=== PATIENT | female | born 1990 | race Caucasian/White ===

== ENCOUNTER 2024-09-17 16:57 | Emergency (ER) | payer OTHER, SELFPAY ==
[2024-09-17 17:20] VITALS: BP 143/89
[2024-09-17 17:56] LABS: % Basophils 0.6 % (0-2); % Eosinophils 1.6 % (0-6); % Immature Granulocytes 0.5 % (0-0.5); % Lymphocytes 25.7 % (20.5-51.1); % Monocytes 5.9 % (1.7-9.3); % Neutrophils 65.7 % (42.2-75.2); Absolute Basophils 0.1 10^3/uL (0-0.2); Absolute Eosinophils 0.1 10^3/uL (0-0.7); Absolute Lymphocytes 2.1 10^3/uL (1.2-3.4); Absolute Monocytes 0.5 10^3/uL (0.1-0.6); Absolute Neutrophils 5.5 10^3/uL (1.4-6.5); Hematocrit 38.8 % (37.0-47.0); Hemoglobin 12.9 g/dL (12.0-16.0); Mean Corp Hgb Conc. 33.2 g/dL (33.0-37.0); Mean Corpuscular Hgb 29.9 pg (27.0-31.0); Mean Corpuscular Volume 89.8 fL (81.0-99.0); Mean Platelet Volume 9.8 fL (7.4-10.4); Nucleated Red Blood Cells % 0 %; Platelet Count 295 10^3/uL (130-400); Red Blood Cell Count 4.32 10^6/uL (4.20-5.40); Red Cell Dist. Width 12.4 % (11.5-14.5); White Blood Cell Count 8.3 10^3/uL (4.8-10.8)
[2024-09-17 18:10] LABS: HCG, Serum Qualitative Screen Negative; INR 0.97; PT 13.2 Sec (11.4-14.6)
[2024-09-17 18:13] LABS: ALT (SGPT) 33 U/L (0-35); AST (SGOT) 30 U/L (14-36); Albumin 4.3 g/dl (3.5-5.0); Alkaline Phosphatase 77 U/L (38-126); Blood Urea Nitrogen 15 mg/dl (7-17); Calcium 9.9 mg/dl (8.4-10.2); Carbon Dioxide 28 mmol/L (22-30); Chloride 102 mmol/L (98-107); Glucose 153 mg/dl (70-99); Potassium 4.5 mmol/L (3.5-5.1); Sodium 142 mmol/L (135-145); Total Bilirubin 0.4 mg/dl (0.2-1.3); Total Protein 7.8 g/dl (6.3-8.2); eGFR > 60.00
[2024-09-17 18:22] LABS: Troponin I < 0.012 ng/ml
[2024-09-17 20:16] VITALS: BP 124/87
[2024-09-17 20:21] VITALS: BMI 31.6
[2024-09-17 20:23] VITALS: BP 124/87
[2024-09-17 21:00] VITALS: BP 133/81
[2024-09-17 21:39] LABS: D-Dimer 0.37 ug/mlFEU (0.00-0.50)
[2024-09-17] MEDS: OMNICEF 300 MG PO (22:04)
[2024-09-17 22:06] VITALS: BP 110/74
[2024-09-17 22:07] VITALS: BP 110/74
--- NOTE | 2024-09-17 22:31 | ED.GENMED ---
History of Present Illness
General
Chief Complaint: Cardiac Symptoms
Source: patient
Exam Limitations: none
Time Seen by Provider: 09/17/24 20:05
Nursing documentation reviewed up to this point in time: agreed with
History of Present Illness
History of Present Illness:
34-year-old female presenting to the emergency department today with concerns of right-sided chest pain started yesterday described as achy sharp and pressure worse with deep breaths.
Past History
Past History
ED Past Medical History: Psychiatric
ED Past Surgical History:
Social History
Tobacco: Non-smoker
Alcohol: Occasional
Drug: None
Personal: Single
Living: with family
Review of Systems
Review of Systems
Allergies reviewed?: Yes
All Other Systems: ROS reviewed and negative except as documented in HPI and ROS
Phy Exam
Physical Exam
Physical Exam:
GENERAL: Alert , in no apparent distress
EYE: pupils equal and reactive
NECK: Supple, no significant adenopathy.
ENT: o/p clr, mmm.
CARDIAC: Regular rate and rhythm .
LUNGS: Clear breath sounds bilaterally, no acute respiratory distress, no wheezes/rales/rhonchi
ABDOMEN: Soft, without focal tenderness, no r/g, no cvat
NEUROLOGICAL: Alert and oriented, no focal neuro deficits
SKIN: Warm and dry, skin intact.
MUSCULOSKELETAL: No edema, well perfused.
PSYCH: Normal and appropriate interaction.
Course
Orders/Labs/Results
Orders:
Orders
09/17/24 17:24
EKG [Electrocardiogram (*1)] Urgent
Reason for Study: Chest Pain
CR Chest - 2 Views Urgent
Comment:
Reason For Exam: SOB
09/17/24 17:25
EKG- Treatment ONCE
Test Result ONCE
09/17/24 17:38
Complete Blood Count/With Diff Urgent
Comprehensive Metabolic Panel Urgent
D-Dimer Urgent
Comment: ADD ON
HCG, Serum Qualitative Screen Urgent
Prothrombin Time Urgent
Troponin I Urgent
09/17/24 21:17
Add On- LAB Urgent
Tests Added?: D-dimer
09/17/24 21:53
Cefdinir [Omnicef] 300 mg PO NOW STA
Abnormal Lab Results
09/17/24
17:38
Glucose 153 H mg/dl
(70-99)
09/17/24 17:38
09/17/24 17:38
Vital Signs
Initial and Last Documented VS:
Initial Vital Signs
Temp Pulse Resp BP Pulse Ox
99.5 F 110 18 143/89 98
09/17/24 17:20 09/17/24 17:20 09/17/24 17:20 09/17/24 17:20 09/17/24 17:20
Last Documented Vital Signs
Temp Pulse Resp BP Pulse Ox
98.4 F 93 14 110/74 98
09/17/24 20:23 09/17/24 22:07 09/17/24 22:07 09/17/24 22:07 09/17/24 22:07
MDM/Problems Addressed
MDM/Problems Addressed:
34-year-old female presenting to the emergency department today with concerns of right-sided chest discomfort starting yesterday worse with deep breaths on arrival tachycardic otherwise vital signs are normal. Labs unremarkable troponin negative
EKG without emergent findings. Dimer was ordered concerning the patient's tachycardia this was negative also. PE very unlikely. Patient also had a chest x-ray that showed possible pneumonia. Patient has had a cough was added cephalosporin
considering the penicillin allergy otherwise stable for outpatient management of potential mild early pneumonia. Return precautions given.
*Critical Care Note
Total Time (30-74mins, 75-104mins- exclusive of procedures): Not Applicable
ED Attending Note
-
Portions of this chart may have been created with voice recognition software.� Occasional wrong word or��sound alike� substitutions may have occurred due to the inherent limitations of voice recognition software.
Discharge Plan
Departure
Patient Disposition: Home (Routine Discharge)
Date of Disposition: 09/17/24
Time of Disposition: 22:31
Patient with high blood pressure during this ER visit?: No
Condition: Good
Covid-19: Not Applicable
Discharge Problem:
Pneumonia
Instructions: Pneumonia
Prescriptions:
New
cefpodoxime 200 mg tablet
200 mg PO BID 7 Days Qty: 14 0RF
No Action
dextroamphetamine-amphetamine [Adderall XR] 10 MG capsule,extended release 24hr
10 mg PO BID
Referrals:
Prasanth Goldman DO [Family Provider] -
Activity Restrictions/Additional Instructions:
You came to the emergency department today with concerns of right-sided chest discomfort. Here you had a reassuring assessment without evidence of heart attack or blood clot. You may have a pneumonia. Please take the prescribed antibiotic.
Please follow closely as an outpatient. Return for any worsening, new or concerning symptoms.
Interventions
Interventions:
*Risk Screen - Suicide Last Done: 09/17/24 17:22
*General Assessment Last Done: 09/17/24 17:22
*Neglect/Abuse Screening Last Done: 09/17/24 17:22
*ED- Fall Risk Assessment Last Done: 09/17/24 20:25
*ED COVID-19 Vaccine History Last Done: 09/17/24 17:22
*Nursing Disposition Last Done: 09/17/24 22:38
ED- Pulmonary Assessment Last Done: 09/17/24 20:25
ED- Cardiac Assessment Last Done: 09/17/24 20:25
Discharge Date and Time
Discharge Date/Time: 09/17/24 22:38
Print Language: HUNGARIAN
== END 2024-09-17 22:38 | disposition home or self-care (01) ==
LOC: EMR 16:57
PROVIDERS: Student in an Organized Health Care Education/Training Program; EMERGENCY PHYSICIAN Emergency Medicine; FAMILY PHYSICIAN Family Medicine
DX: J18.9 Pneumonia, unspecified organism (principal)
CPT/HCPCS: 99283; 71046; 80053; 84484; 84703; 85025; 85379; 85610; 93005